=== PATIENT | male | born 1965 | race Caucasian/White ===

== ENCOUNTER 2024-05-12 13:56 | Outpatient (OUT) | payer OTHER, SELFPAY ==
--- NOTE | 2024-05-12 14:08 | XR_ITS ---
The [address] [address] Patient Name: NYASIA HAYES MRN: [id number] date: 1965 Sex: M Assigned Patient Location: [facility] Current Patient Location: Accession/Order Number: [id number] Exam Date: 05/12/2024 14:00 Report Date: 05/14/2024 05:47 At the request of: TAWANDA BENDER Procedure: XR foot LT min 3V PROCEDURE: XR foot LT min 3V HISTORY: Left foot pain ; tender lump dorsal first metatarsophalangeal joint region COMPARISON: None. FINDINGS: BONES:Narrowing of the first metatarsophalangeal joint and periarticular degenerative osteophytes. SOFT TISSUES:No visible soft tissue swelling. EFFUSION:None visible. OTHER: Negative. XR/XR foot LT min 3V IMPRESSION: 1. 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 2. Patient's tender lump corresponds to a dorsal projecting osteophyte. Electronically authenticated by: VALENCIA MARIE Date: 05/14/2024 05:47
== END 2024-05-12 13:57 | disposition home or self-care (01) ==
PROVIDERS: Visit Provider Podiatrist Foot & Ankle Surgery
DX: M79.672 Pain in left foot (principal); M19.072 Primary osteoarthritis, left ankle and foot
CPT/HCPCS: 73630

== ENCOUNTER 2024-06-18 12:21 | Outpatient (OUT) | payer OTHER, SELFPAY ==
--- NOTE | 2024-06-18 12:26 | ECG_ITS ---
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
--- NOTE | 2024-06-18 12:58 | P.GSHP_ITS ---
History of Present Illness History of Present Illness Chief complaint: Hallux Rigidus Narrative: Patient presents for presurgical testing. The patient reports left foot pain and swelling which has been ongoing for more than 2 years. He states his pain has been worsening especially after being on his feet for long periods of time. He denies specific trauma or injury. He denies numbness, tingling, weakness, or any other complaints. Review of Systems ROS Narrative REVIEW OF SYSTEMS: Negative except as stated in HPI, ten or more systems reviewed. Constitutional: No fever, chills, weakness ENT: No sore throat or epistaxis Cardiovascular: No edema, chest pain, palpitations, or activity intolerance Respiratory: No shortness of breath, cough, or wheezing Gastrointestinal: No abdominal pain, constipation, diarrhea, or vomiting Genitourinary: No dysuria or hematuria Neurological: No numbness, tingling, weakness, or headache Psychiatric: No mood changes [facility] Medical History (Updated 06/18/24 @ 12:41 by Kerry Chau NP) Heartburn ?R12 - Heartburn (ICD-10) Back pain ?M54.9 - Dorsalgia, unspecified (ICD-10) Left foot pain ?M79.672 - Pain in left foot (ICD-10) Hallux rigidus, left foot ?M20.22 - Hallux rigidus, left foot (ICD-10) Surgical History (Updated 06/18/24 @ 12:41 by Kerry Chau NP) History of spinal surgery ?Z98.890 - Other specified postprocedural states (ICD-10) History of arthroscopy of knee ?Z98.890 - Other specified postprocedural states (ICD-10) History of colonoscopy ?Z98.890 - Other specified postprocedural states (ICD-10) History of appendectomy ?Z90.49 - Acquired absence of other specified parts of digestive tract (ICD- 10) Family History (Updated 06/18/24 @ 12:41 by Kerry Chau NP) Other Family history of cancer Family history of diabetes mellitus Family history of hypertension Family history of myocardial infarction Family history of thyroid cancer TIA (transient ischemic attack) Social History (Updated 06/18/24 @ 12:37 by Kerry Chua NP) Within the past year, how often did you have a drink containing alcohol: never Score interpretation: A score less than 4 is consistent with normal alcohol consumption. 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 Highest level of school completed/degree received: high school graduate Meds Home Medications and Allergies Allergies Allergy/AdvReac Type Severity Reaction Status Date / Time No Known Drug Allergies Allergy Verified 06/18/24 12:33 Exam Narrative Exam Narrative: Constitutional: Awake, alert, comfortable, well-appearing, nontoxic, interactive, vital signs as charted Head: Normocephalic, atraumatic Neck: Supple, normal appearance, normal range of motion, no meningeal signs, no lymphadenopathy Respiratory: No respiratory distress, breath sounds clear Cardiovascular: Regular rate and rhythm, strong and regular heart tones Musculoskeletal: Normal gait, no swelling or edema, left foot tenderness overlying the first MPJ, limited range of motion of the left great toe, good capillary refill, sensation intact Skin: No rashes or induration, no lesions, only visible skin inspected Neuro: No neurological deficits, normal sensation Psychiatric: Oriented ?3, normal affect Assessment and Plan Assessment and Plan (1) Hallux rigidus, left foot: (2) Left foot pain: Plan Left first metatarsal phalangeal joint fusion versus cheilectomy with bone graft as needed scheduled with Dr. Pop July 06, 2024.
== END 2024-06-18 12:22 | disposition home or self-care (01) ==
PROVIDERS: PCP Family Medicine; Visit Provider Podiatrist Foot & Ankle Surgery
DX: Z01.810 Encounter for preprocedural cardiovascular examination (principal); Z01.818 Encounter for other preprocedural examination; M20.22 Hallux rigidus, left foot
CPT/HCPCS: 93005; G0463